=== PATIENT | male | born 1970 | race African-American/Black ===

== ENCOUNTER 2017-10-07 13:41 | Emergency (ER) | payer BC ==
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
[2017-10-07] MEDS ORDERED: ACETAMINOPHEN TAB 500 MG TAB PO STA (14:44)
--- NOTE | 2017-10-07 15:05 | CT ---
EXAMINATION TYPE: CT brain wo con DATE OF EXAM: 10/07/2017 COMPARISON: NONE HISTORY: Head injury CT DLP: 1009.7 mGycm. Automated Exposure Control for Dose Reduction was Utilized. TECHNIQUE: CT scan of the head is performed without contrast. FINDINGS: There is a calvarial fracture at the site of injury with step-off seen on the sagittal imag es 23 through 25 and 8 bone fragment situated within a scalp hematoma measuring 6 mm just deep to the laceration. This is just cranial to the lambdoid suture. No underlying intracranial hemorrhage is id entified. Punctate calcification is seen within the anterior horn of the left lateral ventricle. Ther e is no acute intracranial hemorrhage, mass effect, or midline shift identified. The ventricles and sulci are within normal limits in size. The globes are intact and the visualized sinuses are clear o ther than mild mucosal thickening within the ethmoid sinuses. IMPRESSION: Minimally displaced calvarial fracture just above the lambdoid suture deep to a 6 mm sca lp hematoma and scalp laceration. Small osseous fragment is seen within the hematoma. No evidence of intracranial hemorrhage, however short-term follow-up is advised for surveillance of intracranial hem orrhage.
[2017-10-07 16:01] VITALS: BP 178/94; PULSE 90; RESP 18; TEMP 97.9
== END 2017-10-07 15:50 | disposition other institution (70) ==
LOC: EC 13:41
DX: S02.80XA Fracture of other specified skull and facial bones, unspecified side, initial encounter for closed fracture (principal); S01.01XA Laceration without foreign body of scalp, initial encounter; Y04.0XXA Assault by unarmed brawl or fight, initial encounter; Y92.009 Unspecified place in unspecified non-institutional (private) residence as the place of occurrence of the external cause
CPT/HCPCS: 12001; 70450; 96374; 99284